=== PATIENT | male | born 1960 | race Caucasian/White ===

== ENCOUNTER 2018-07-24 12:57 | Outpatient (CLI) | payer OTHER ==
--- NOTE | 2018-07-24 15:29 | MRI ---
MRI LEFT KNEE WITHOUT CONTRAST: Date: 07/24/18 HISTORY: Internal derangement. N23.92. COMPARISON: Knee radiograph dated 04/02/17. FINDINGS: There is very little signal on the examination due to the extensive hardware artifact. Medial Meniscus: There is loss of volume in the medial meniscal body and posterior horn with chronic undersurface flap tear. Lateral Meniscus: Likely intact. PCL, LCL, and MCL: Intact. There is no normal distal ACL fiber appreciated with severe mucoid degenerative of the proximal ACL. Extensor Mechanism: Quadriceps tendon, patella, and patellar tendon are all intact. Cartilage: Patellofemoral compartment: High grade cartilage fissuring and delamination of the patellar apex, me dial patellar facet, and medial trochlea. Medial compartment: High grade chondral loss of the posterior weightbearing surface of medial femora l condyle, greater than 75%. Lateral compartment: Intact. Bones: Claw plate of the medial tibial plateau is present. Soft Tissues: Large joint effusion. Mild synovitis. IMPRESSION: 1. Loss of volume of the medial meniscal body and posterior horn with chronic undersurface flap tear . 2. 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 3. Focal Grade III chondromalacia posterior weightbearing zone of the medial femoral condyle. 4. Moderate joint effusion and synovitis. POS: [facility]
== END 2018-07-24 12:58 | disposition home or self-care (01) ==
LOC: SCSMRI 12:57
PROVIDERS: ATTEND Orthopaedic Surgery
DX: M23.92 Unspecified internal derangement of left knee (principal); S83.207D Unspecified tear of unspecified meniscus, current injury, left knee, subsequent encounter; M22.42 Chondromalacia patellae, left knee; M25.462 Effusion, left knee; M65.862 Other synovitis and tenosynovitis, left lower leg

== ENCOUNTER 2018-08-12 08:30 | Inpatient (IN) | payer OTHER ==
[2018-08-18] MEDS ORDERED: CEFAZOLIN/Water 2 GM/20 ML SYRINGE ONE (06:00)
[2018-08-18] MEDS ORDERED: Bupivacaine PF 0.5% 30 ML VIAL ONE (06:21)
[2018-08-18] MEDS ORDERED: Fentanyl 100 MCG/2 ML VIAL ONE (06:27)
[2018-08-18] MEDS ORDERED: Lidocaine 1% (PF) 30 ML VIAL ONE (06:27)
[2018-08-18] MEDS ORDERED: Midazolam HCl 2 mg/2 ml Vial ONE (06:27)
[2018-08-18] MEDS ORDERED: Clindamycin/D5W 600 mg/50 ml Premix Bag ONE (07:05)
[2018-08-18] MEDS ORDERED: Ondansetron HCl/PF 4 MG/2 ML Vial IVP PRN ×3 (07:27→10:22)
[2018-08-18] MEDS ORDERED: traMADol HCl 50 MG TAB PO PRN ×3 (07:27→10:22)
[2018-08-18] MEDS ORDERED: HYDROcodone/Acetaminophen 10/325 mg Tablet PO PRN ×2 (07:27)
[2018-08-18] MEDS ORDERED: Ropivacaine HCl/PF 250 ML in Premix Bag 1 BAG NERVE BLCK SCH (07:27)
[2018-08-18] MEDS ORDERED: Fentanyl 100 MCG/2 ML VIAL IV PRN (07:27)
[2018-08-18] MEDS ORDERED: Promethazine HCl 25 MG/ML VIAL IM PRN ×3 (07:27→10:22)
[2018-08-18] MEDS ORDERED: Zolpidem Tartrate 5 MG TAB PO PRN ×2 (07:27→10:22)
[2018-08-18] MEDS ORDERED: HYDROmorphone 0.5 MG/0.5 ML SYRINGE ONE ×2 (07:42→07:53)
[2018-08-18] MEDS ORDERED: Promethazine HCl 25 MG/ML VIAL SLOW IVP PRN (09:09)
[2018-08-18] MEDS ORDERED: HYDROmorphone 2 MG/ML VIAL SLOW IVP PRN (09:09)
[2018-08-18] MEDS ORDERED: Acetaminophen 325 MG TAB PO PRN (10:22)
[2018-08-18] MEDS ORDERED: diphenhydrAMINE 25 MG CAP PO PRN (10:22)
[2018-08-18] MEDS ORDERED: Nortriptyline 10 MG CAP PO PRN (10:24)
[2018-08-18] MEDS ORDERED: Albuterol Sulfate 1.25 MG/3 ML NEB ONE (10:27)
[2018-08-18] MEDS ORDERED: Sodium Chloride For Inhalation 0.9% 3 ML NEB ONE (10:27)
[2018-08-18] MEDS ORDERED: Tranexamic Acid 1,000 MG in Sodium Chloride 0.9% 100 ML IVPB SCH (10:30)
[2018-08-18] MEDS ORDERED: TESTOSTERONE CYPIONATE 100 MG IM SCH (11:00)
--- NOTE | 2018-08-18 11:17 | OP ---
DATE OF PROCEDURE: 08/18/2018 PREOPERATIVE DIAGNOSIS: Retained hardware, left leg, with severe left knee tricompartmental osteoart hrosis. POSTOPERATIVE DIAGNOSIS: Retained hardware, left leg, with severe left knee tricompartmental osteoar throsis. PROCEDURES PERFORMED: 1. Left total knee replacement using [employer] pinless navigation. 2. Removal of hardware, left tibia. SURGEON: Audi Pinedo M.D. METER READING CLERK: Shahram Rush PA-C. BLOOD LOSS: 100 mL COMPLICATIONS: None. ANESTHESIA: He had general anesthetic. He had a preoperative block. IMPLANTS: Triathlon total knee system, the femur was a size 8 cruciate retaining, the tibial basepla te was a size 8, primary tibial baseplate. We used an 8 x 9 mm CS X3 tibial bearing and 35 x 10 asym metric X3 patella. DISPOSITION: He went to the recovery room in stable condition. INDICATIONS: A 57-year-old male who had a high tibial opening wedge osteotomy done years ago and at this time he is presenting for knee replacement. OPERATIVE PROCEDURE: After all appropriate consent forms were explained and signed, she was taken ba ck to the operating room and was given general anesthetic. Once the level of anesthesia was appropri ate, a well-padded tourniquet was placed on the left leg and the leg was then prepped and draped in s tandard surgical fashion. The limb was exsanguinated and tourniquet taken up to 300 mmHg. Midline inc ision was made with a 10 blade down through the skin and subcutaneous tissue. Bovie electrocautery wa s used to coagulate any brisk venous bleeding. A new blade was used to make a medial parapatellar art hrotomy. Small subperiosteal release was performed medially and excess fat pad was removed. The knee was flexed up to gain access to the femur. The femur was navigated and distal femoral resection was m romeo. Epicondylar access was used to align our sizing jig and this was pinned in place. We sized our f emur to be a size 8 cruciate retaining. 4:1 cutting block was applied and pinned. Anterior and poste rior chamfer cuts were then made. We navigated out our proximal tibia and made our proximal tibial re section. Spreaders were used to remove any posterior osteophytes off the back of the femur as well as remaining meniscal tissue. A long alignment arcadio was then used to achieve correct rotation of our tib ial baseplate and a size 8 was chosen. This was pinned in place. We trialed the polyethylene and a 8 x 9 mm CS X3 tibial bearing polyethylene gave us full extension and good stability throughout range o f motion. Two towel clips and a saw were used to cut our patella. Three lug nuts were drilled and 35 x 10 asymmetric X3 patella was trialed which sat nicely in the trochlear groove. We then drilled our femur and punched our tibia. All components were removed. The knee was thoroughly irrigated and dried . Cement was mixed into the cement gun on the back table. Components were then placed. The knee was h eld out in full extension until the cement had dried. All excess bone cement was removed. Multiple # 2 Vicryl stitches as well as a Quill was used to close our extensor mechanism. 0 Quill followed by a running Monoderm was then used to close the skin. Surgicel glue was then used on the skin. Once this had dried, soft tissue dressing was applied to the limb, tourniquet was let down, and the toes pinked up nicely. The patient was then awakened and taken to the Recovery Room in stable condition. All co unts were correct at the end of the case. The patient did receive preoperative IV antibiotics. The p atient was injected with Exparel for postoperative pain relief. # This patient's high tibial osteotomy plate did cause great difficulty throughout the procedure. In itially, we tried to remove the top line of screws and we were fortunate to get 2 of the screws out, but one of them cold welded. I broke 2 screwdrivers trying to take this out. Therefore, we tried to perform the procedure seeing if we could sneak. The fin of the tibial baseplate around inside the t ibia without heading the screw. Unfortunately, this proved to be impossible. Therefore, in the midd le of the procedure, we had to take out a high speed bur with a metal cutting tip and we had to cut t hrough the top of the plate and through a locking ring and had to open this up, so that we were able to gain access to the screw itself. The entire plate was removed and all the screws. At this time, we were then able to remove the screw. Once this was done, we went about finishing our total knee. Again, this did put us a long tourniquet time and we let the tourniquet down and around 2 hours 10 mi nutes, so that we were able to implant the knee, allowed the cement to harden and closed the first la ju[place] of tissue. Once that was done, the tourniquet was let down. Toes pinked up nicely. We then did finish closing with the superficial layers of Stratafix and then finally closed the skin with interr upted Prolene sutures. Bulky sterile dressing was applied.
[2018-08-18] MEDS ORDERED: Bupivacaine 0.25% HCL 30 ML VIAL ONE (12:24)
[2018-08-18] MEDS ORDERED: Ropivacaine 0.5% HCl/PF (150 MG/30 ML VIAL) ONE (12:24)
[2018-08-18] MEDS ORDERED: ePHEDrine/0.9% NaCl/PF SYRINGE 50 mg/10 ml ONE (12:30)
[2018-08-18] MEDS ORDERED: PROPOFOL 200 MG/20 ML VIAL ONE (12:30)
[2018-08-18] MEDS ORDERED: Ondansetron HCl/PF 4 MG/2 ML Vial ONE (12:30)
[2018-08-18] MEDS ORDERED: Lidocaine 1% PF 5 ML VIAL ONE (12:30)
[2018-08-18] MEDS ORDERED: Dexamethasone 20 MG/5 ML VIAL ONE (12:30)
[2018-08-18] MEDS ORDERED: Ketorolac Tromethamine 30 MG/ML VIAL ONE (12:30)
[2018-08-18 12:44] VITALS: BMI 38.8
[2018-08-18] MEDS: Ketorolac Tromethamine 30 MG/ML VIAL IVP SCH ×2 (13:45→17:44)
[2018-08-18] MEDS: Sodium Chloride 0.9% 1,000 ML IV SCH ×2 (13:45→17:50)
--- NOTE | 2018-08-18 14:33 | CON ---
DATE OF CONSULTATION: 08/18/2018 PRIMARY CARE PHYSICIAN: Dr. Alejandro Reid. PRIMARY ATTENDING: Dr. Audi Pinedo. REASON FOR ADMISSION: Elective admission for left total knee replacement, hardware removal. REASON FOR CONSULT: Medical comanagement. HISTORY OF PRESENT ILLNESS: A 57-year-old male who has underlying history of hypertension, who had r ight total knee replacement done in 2016. At this time, the patient is admitted by Dr. Pinedo for left total knee replacement, hardware removal. The patient underwent surgery earlier today without any c omplications. Postoperatively, at [facility], we were consulted for medical comanagement. The patient does have history of osteoarthritis, which he thinks got from his work related overuse. Currently, he denies any chest pain, palpitation. He has nerve block in place and that is why his pa in over surgical site is controlled. He denies any constipation, diarrhea. He does report right asad ulder pain on and off basis. REVIEW OF SYSTEMS: The following complete review of systems was negative, unless otherwise mentioned in the HPI or below: Constitutional: Weight loss or gain, ability to conduct usual activities. Skin: Rash, itching. Eyes: Double vision, pain. ENT/Mouth: Nose bleeding, neck stiffness, pain, tenderness. Cardiovascular: Palpitations, dyspnea on exertion, orthopnea. Respiratory: Shortness of breath, wheezing, cough, hemoptysis, fever or night sweats. Gastrointestinal: Poor appetite, abdominal pain, heartburn, nausea, vomiting, constipation, or diarr hea. Genitourinary: Urgency, frequency, dysuria, nocturia. Musculoskeletal: Pain, swelling. Neurologic/Psychiatric: Anxiety, depression. Allergy/Immunologic: Skin rash, bleeding tendency. Please see my HPI for pertinent positive and negative. All other review of system reviewed and negat socorro except as mentioned in the HPI. PAST MEDICAL HISTORY: History of hypertension, dyslipidemia, obesity with BMI 38, osteoarthritis. PAST SURGICAL HISTORY: Cardiac catheterization with angioplasty in the past, right total knee replac ement. The patient had several left knee surgery and patient is status post hardware removal from le ft knee. PAST PSYCHIATRIC HISTORY: Reviewed and negative. FAMILY HISTORY: Father had unknown cancer, no strong family history of coronary artery disease or [place]. SOCIAL HISTORY: The patient is smoking about 1 pack per day. He denies any alcohol abuse. He denie s any other illicit drug abuse. ALLERGIES: KEFLEX and WELLBUTRIN. HOSPITAL COURSE: Reviewed. CURRENT HOME MEDICATIONS: Aspirin 325 mg p.o. daily, pravastatin 20 mg p.o. daily, testosterone 100 mg IM every 2 weeks, Nortriptyline 10 mg p.o. at bedtime, [place] 10 one tablet q.4 hourly p.r.n., hydr ochlorothiazide 25 mg p.o. daily. PHYSICAL EXAMINATION: VITAL SIGNS: Temperature 97.8, pulse 59, respiratory rate 18, saturation 95% on room air, blood pres sure 162/87, weight 311 pounds. GENERAL: Patient is currently alert, awake, no obvious acute distress. HEENT: Head: Normocephalic, atraumatic. Eyes: Pupils round, reactive to light. Extraocular muscl e intact. ENT: Oropharynx within normal limits. Moist mucous membranes. No oral lesion, no pharyn geal erythema, no exudate. NECK: Supple, no JVD, no thyromegaly, no carotid bruit, no jugular venous distention. LUNGS: Clear to auscultation without any rhonchi or rales. CARDIAC: S1, S2 regular without any significant murmur. ABDOMEN: Obesity present. Nontender, nondistended. No organomegaly, no mass, no suprapubic tendern ess. BACK: Unremarkable. No CVA tenderness. EXTREMITIES: Upper extremity, passive movement of all joints are normal. Lower extremity, left knee is covered with a dressing. He has a nerve block in place. Right lower extremity within normal jackson it. NEUROLOGIC: Nonfocal examination. Speech normal. Patient is able to move all four limbs. PSYCHIATRIC: Normal affect. HEMATOLOGIC: No lymphadenopathy. SIGNIFICANT LABORATORY DATA: CBC: WBC 7.2, hemoglobin 14.7, platelet 213. INR 1.0. BMP shows sodi um 141, potassium 4.1, chloride 108, BUN 19, creatinine 1.22, calcium 9.1. Urinalysis normal. ASSESSMENT AND PLAN: 1. Tobacco abuse disorder. Smoking cessation counseling given. We will offer nicotine patch to use on a p.r.n. basis while in hospital. 2. Osteoarthritis. This patient required right total knee replacement in the past and he had severa l surgeries on left knee and he had hardware removed from left knee. We will defer management to [facility] team. Patient will need PT, OT while in hospital. Patient will need aspirin for deep venous th rombosis prophylaxis, ferrous gluconate 324 mg p.o. b.i.d. Patient has nerve block, which will defer to anesthesia. Pain control with oral pain medication. 3. Dyslipidemia. Continue pravastatin 20 mg p.o. at bedtime. 4. Obesity with BMI 38. Dietary education given, weight loss education given. Healthy lifestyle me asures discussed with the patient. 5. Deep venous thrombosis prophylaxis per protocol. The patient is on aspirin therapy. 6. Gastrointestinal prophylaxis. Pepcid 20 mg p.o. b.i.d. 7. CODE STATUS: The patient is FULL CODE. The patient's is surrogate decision maker. Disposition plan based on clinical course. Thank you for the consult. We will follow up with you while in hospital.
[2018-08-18] MEDS ORDERED: Milk Of Magnesia 30 ML UDCUP PO PRN (14:36)
[2018-08-18] MEDS ORDERED: cloNIDine 0.1 MG TAB PO PRN (14:36)
[2018-08-18] MEDS ORDERED: Artificial Tears 18 DROP/0.9 ML EA EYE PRN (14:36)
[2018-08-18] MEDS ORDERED: Senokot 8.6 MG TAB PO PRN (14:36)
[2018-08-18] MEDS ORDERED: Diabetic Tussin 200 MG/10 ML UDCUP PO PRN (14:36)
[2018-08-18] MEDS ORDERED: Calcium Carbonate 500 MG ChewTAB PO PRN (14:36)
[2018-08-18] MEDS ORDERED: Mag-Al 1200 mg/1200 mg/30 ML UDCUP PO PRN (14:36)
[2018-08-18] MEDS ORDERED: Loperamide HCl 2 MG CAP PO PRN (14:36)
[2018-08-18] MEDS ORDERED: Sodium Chloride 0.65% Nasal 44 ML BOT EA NARE PRN (14:36)
[2018-08-18] MEDS ORDERED: Eucerin (Mineral Oil/Petrolatum,White) 30 gm Jar TOP PRN (14:36)
[2018-08-18] MEDS ORDERED: hydrALAZINE 20 MG/ML VIAL SLOW IVP PRN (14:36)
[2018-08-18] MEDS ORDERED: Chloraseptic Spray 180 ml Bottle PO PRN (14:36)
[2018-08-18] MEDS: Clindamycin/D5W 900 MG in Premix Bag 1 BAG IVPB SCH ×2 (14:50→22:00)
[2018-08-18] MEDS: Famotidine 20 MG TAB PO SCH (21:55)
[2018-08-18] MEDS: Aspirin 81 mg Enteric Coated Tablet PO SCH (21:56)
[2018-08-18] MEDS ORDERED: Clindamycin/D5W 900 MG in Premix Bag 1 BAG IVPB SCH (22:00)
[2018-08-19] MEDS: Ketorolac Tromethamine 30 MG/ML VIAL IVP SCH ×3 (01:00→12:24)
[2018-08-19 05:39] LABS: Hemoglobin 11.1 g/dL (14.0-18.0); Mean Corpuscular HGB CONC 32.8 g/dL (32.0-36.0); Mean Corpuscular Hemoglobin 30.1 pg (27.0-31.0); Mean Corpuscular Volume 91.8 fL (78.0-98.0); Mean Platelet Volume 8.3 fL (7.4-10.4); Platelet Count 198 thou/uL (130-400); RBC Distribution Width 12.8 % (11.5-14.5); Red Blood Cell (RBC) Count 3.68 mill/uL (4.70-6.10); White Blood Cell (WBC) Count 11.9 thou/uL (4.8-10.8)
[2018-08-19] MEDS: Sodium Chloride 0.9% 1,000 ML IV SCH (05:52)
[2018-08-19] MEDS ORDERED: Pravastatin Sodium 20 MG TAB PO SCH (09:00)
[2018-08-19] MEDS ORDERED: Senokot S 8.6-50 MG TAB PO SCH (09:00)
[2018-08-19] MEDS ORDERED: Ferrous Gluconate 324 MG TAB PO SCH (09:00)
[2018-08-19] MEDS ORDERED: Multivitamin W/ Minerals 1 TAB PO SCH (09:00)
[2018-08-19] MEDS: Aspirin 81 mg Enteric Coated Tablet PO SCH (09:04)
[2018-08-19] MEDS: Famotidine 20 MG TAB PO SCH (09:05)
--- NOTE | 2018-08-19 09:43 | PDOC.PN ---
- Subjective Encounter Start Date: 08/19/18 Encounter Start Time: 09:00 -: old records requested/rev Patient seen and examined. No new complaints. No overnight events - Objective Resuscitation Status: Resuscitation Status FULL:Full Resuscitation MAR Reviewed: Yes Vital Signs & Weight: Vital Signs (12 hours) Temp Pulse Resp BP Pulse Ox 08/19/18 08:15 98.2 F 67 18 131/74 96 08/19/18 04:00 98.4 F 65 16 124/71 96 08/19/18 00:00 98.7 F 66 16 155/83 H 94 L Weight Weight 311 lb I&O: 08/18/18 08/19/18 08/20/18 06:59 06:59 06:59 Intake Total 2282 Balance 2282 Result Diagrams: 08/19/18 04:53 Phys Exam - Physical Examination Constitutional: NAD HEENT: PERRLA, moist MMs, sclera anicteric Neck: no JVD, supple Respiratory: no wheezing, no rales, no rhonchi Cardiovascular: RRR, no significant murmur, no rub Gastrointestinal: soft, non-tender, no distention, positive bowel sounds Musculoskeletal: no edema, pulses present left knee with dressing, nerve block+ Neurological: non-focal, normal sensation, moves all 4 limbs Psychiatric: normal affect, A&O x 3 Skin: no rash, normal turgor Dx/Plan (1) S/P hardware removal Code(s): Z98.890 - OTHER SPECIFIED POSTPROCEDURAL STATES Status: Acute Comment: left knee (2) Anemia, normocytic normochromic Code(s): D64.9 - ANEMIA, UNSPECIFIED Status: Chronic (3) Dyslipidemia Code(s): E78.5 - HYPERLIPIDEMIA, UNSPECIFIED Status: Chronic (4) Hypertension Code(s): I10 - ESSENTIAL (PRIMARY) HYPERTENSION Status: Chronic (5) Obesity (BMI 30-39.9) Code(s): E66.9 - OBESITY, UNSPECIFIED Status: Chronic (6) Osteoarthritis Code(s): M19.90 - UNSPECIFIED OSTEOARTHRITIS, UNSPECIFIED SITE Status: Chronic - Plan cont current plan of care, plan discussed w/ family, PT/OT * continue aspirin for DVT prophylaxis * continue pepcid for GI prophylaxis * PT as per [facility] protocol * pain controlled with current pain meds * nerve block as per anesthesia * discussed with * medication reviewed as below * symptomatic treatment * home medication as ordered. Review of Systems - Review of Systems ENT: negative: Ear Pain, Ear Discharge, Nose Pain, Nose Discharge, Nose Congestion, Mouth Pain, Mouth Swelling, Throat Pain, Throat Swelling, Other Respiratory: negative: Cough, Dry, Shortness of Breath, Hemoptysis, SOB with Excertion, Pleuritic Pain, Sputum, Wheezing Cardiovascular: negative: chest pain, palpitations, orthopnea, paroxysmal nocturnal dyspnea, edema, light headedness, other Gastrointestinal: negative: Nausea, Vomiting, Abdominal Pain, Diarrhea, Constipation, Melena, Hematochezia, Other Genitourinary: negative: Dysuria, Frequency, Incontinence, Hematuria, Retention , Other Musculoskeletal: negative: Neck Pain, Shoulder Pain, Arm Pain, Back Pain, Hand Pain, Leg Pain, Foot Pain, Other Skin: negative: Rash, Lesions, Huy, Bruising, Other - Medications/Allergies Allergies/Adverse Reactions: Allergies Allergy/AdvReac Type Severity Reaction Status Date / Time bupropion HCl Allergy Severe CHEST Verified 04/10/16 12:48 [From Wellbutrin] TIGHTNESS cephalexin monohydrate Allergy Intermediate Hives Verified 04/10/16 12:48 [From Keflex] Medications: Current Medications Acetaminophen (Tylenol) 650 mg PO Q4H PRN PRN Reason: MALHOTRA/ T > 101F; Mild Pain (1-3) Hydrocodone Bitart/Acetaminophen ([place] 10/325) 1 tab PO Q4H PRN PRN Reason: Pain (1-3) Hydrocodone Bitart/Acetaminophen ([place] 10/325) 2 tab PO Q4H PRN PRN Reason: PAIN (4-6) Al Hydroxide/Mg Hydroxide (Maalox) 15 ml PO Q4H PRN PRN Reason: Heartburn or Indigestion Artificial Tears (Tears Naturale) 0 drop EA EYE PRN PRN PRN Reason: Dry Eyes Aspirin (Ecotrin) 81 mg PO BID [facility] Last Admin: 08/19/18 09:04 Dose: 81 mg Calcium Carbonate (Tums) 1,000 mg PO Q4H PRN PRN Reason: Heartburn or Indigestion Clonidine (Catapres) 0.1 mg PO Q4H PRN PRN Reason: Systolic BP > 180 Diphenhydramine HCl (Benadryl) 25 mg PO Q6H PRN PRN Reason: Itching Famotidine (Pepcid) 20 mg PO BID [facility] Last Admin: 08/19/18 09:05 Dose: 20 mg Fentanyl (Sublimaze) 50 mcg IV Q1H PRN PRN Reason: BREAKTHRU PAIN Ferrous Gluconate (Fergon) 324 mg PO BID [facility] Last Admin: 08/19/18 09:05 Dose: 324 mg Guaifenesin (Robitussin Sf) 200 mg PO Q4H PRN PRN Reason: Cough Hydralazine HCl (Apresoline) 10 mg SLOW IVP Q4H PRN PRN Reason: Systolic BP > 180 Ropivacaine 250 ml/ Device 250 mls @ 10 mls/hr NERVE BLCK INF [facility] Sodium Chloride (Normal Saline 0.9%) 1,000 mls @ 100 mls/hr IV .Q10H [facility] Last Admin: 08/19/18 05:52 Dose: Not Given Iron/Minerals/Multivitamins (Theragran M) 1 tab PO DAILY [facility] Last Admin: 08/19/18 09:06 Dose: 1 tab Ketorolac Tromethamine (Toradol) 30 mg IVP Q6HR [facility] Stop: 08/20/18 06:01 Last Admin: 08/19/18 05:51 Dose: 30 mg Loperamide HCl (Imodium) 2 mg PO PRN PRN PRN Reason: Diarrhea/Loose Stools Magnesium Hydroxide (Milk Of Magnesium) 30 ml PO DAILYPRN PRN PRN Reason: Constipation Mineral Oil/White Petrolatum (Eucerin Cream) 0 gm TOP BIDPRN PRN PRN Reason: Dry Skin Nortriptyline HCl (Pamelor) 10 mg PO HS PRN PRN Reason: Insomnia Ondansetron HCl (Zofran) 4 mg IVP Q6H PRN PRN Reason: Nausea/Vomiting Ondansetron HCl (Zofran) 4 mg IVP Q6H PRN PRN Reason: Nausea/Vomiting Phenol (Chloraseptic [place] 180 Ml Bot) 0 ml PO PRN PRN PRN Reason: Sore Throat Pravastatin Sodium (Pravachol) 20 mg PO DAILY [facility] Last Admin: 08/19/18 09:06 Dose: 20 mg Promethazine HCl (Phenergan) 12.5 mg IM Q4H PRN PRN Reason: Nausea Promethazine HCl (Phenergan) 12.5 mg IM Q4H PRN PRN Reason: Nausea/Vomiting Senna (Senokot) 2 tab PO HSPRN PRN PRN Reason: Constipation Senna/Docusate Sodium (Senokot S) 2 tab PO BID [facility] Last Admin: 08/19/18 09:06 Dose: 2 tab Sodium Chloride (Flush - Normal Saline) 10 ml IVF PRN PRN PRN Reason: Saline Flush Sodium Chloride ([place] Nasal [place] 0.65%) 0 ml EA NARE QIDPRN PRN PRN Reason: Nasal Congestion Tramadol HCl (Ultram) 50 mg PO Q6H PRN PRN Reason: Mild Pain (1-3) Tramadol HCl (Ultram) 100 mg PO Q6H PRN PRN Reason: Moderate Pain 4-6 Tramadol HCl (Ultram) 100 mg PO Q6H PRN PRN Reason: Mild Pain (1-3) Zolpidem Tartrate (Ambien) 5 mg PO HSPRN PRN PRN Reason: Insomnia Zolpidem Tartrate (Ambien) 5 mg PO HSPRN PRN PRN Reason: Insomnia
[2018-08-19] MEDS ORDERED: Ropivacaine 0.2% 550 ML 550 ML NERVE BLCK SCH (13:00)
--- NOTE | 2018-08-19 15:32 | PRG ---
DATE OF SERVICE: 08/19/2018 Please see my consultation note for more detail. This patient was admitted electively by Dr. Shahida sanchez hardware removal from left knee. Postoperatively at [facility] Team was consulted for medical comanagement. Please see my consult note for more detail. The patient had aspirin for DVT prophylaxis and nerve block as per Anesthesia. Patient's pain was controlled with pain medication. We continued all his home medication which she will continue upon discharge. The patient is given No rco for pain, prescription by primary team. The patient is seen and examined at bedside today. Please see my progress note from today for furthe r detail. Today, primary team is discharging and we will sign off.
[2018-08-19 16:04] VITALS: BP 147/73; TEMP 98.3
== END 2018-08-19 15:30 | disposition home or self-care (01) | DRG 909 ==
LOC: SJJU 08-18 05:36
PROVIDERS: ADMIT Orthopaedic Surgery; ATTEND Orthopaedic Surgery
PROC: 0SRD0J9 Replacement of Left Knee Joint with Synthetic Substitute, Cemented, Open Approach (ICD-10-PCS; principal; 2018-08-18)
DX: T85.848A Pain due to other internal prosthetic devices, implants and grafts, initial encounter (principal); I10 Essential (primary) hypertension; E78.5 Hyperlipidemia, unspecified; E66.9 Obesity, unspecified; Z68.38 Body mass index [BMI] 38.0-38.9, adult; M17.12 Unilateral primary osteoarthritis, left knee
CPT/HCPCS: 36415; 85027; 86850; 86900; 86901; A4306; C1713; C1776; G8978-GP-CK; G8979-GP-CI; J1170; J1885; J2001; J2250; J2795; J3010; J3370; J3490; J7050; S0020

== ENCOUNTER 2018-08-12 08:34 | Outpatient (CLI) | payer OTHER ==
[2018-08-12 10:03] LABS: Hemoglobin 14.7 g/dL (14.0-18.0); Mean Corpuscular HGB CONC 33.7 g/dL (32.0-36.0); Mean Corpuscular Hemoglobin 30.5 pg (27.0-31.0); Mean Corpuscular Volume 90.5 fL (78.0-98.0); Mean Platelet Volume 7.7 fL (7.4-10.4); Platelet Count 213 thou/uL (130-400); RBC Distribution Width 12.5 % (11.5-14.5); Red Blood Cell (RBC) Count 4.84 mill/uL (4.70-6.10); White Blood Cell (WBC) Count 7.2 thou/uL (4.8-10.8)
[2018-08-12 10:15] LABS: Anion Gap 12 mmol/L (10-20); BUN (Urea Nitrogen) 19 mg/dL (8.4-25.7); Calc. Creatinine Clearance 0 mL/min (70-130); Calcium 9.1 mg/dL (7.8-10.44); Carbon Dioxide 25 mmol/L (22-29); Chloride 108 mmol/L (98-107); Estimated GFR-MDRD 61; Glucose 109 mg/dL (70-105); Potassium 4.1 mmol/L (3.5-5.1); Sodium 141 mmol/L (136-145)
[2018-08-12 10:36] LABS: Bilirubin Negative (Negative); Blood, Urine Negative (Negative); Clarity CLEAR (Clear); Glucose, Urine (Dipstick) Negative (Negative); Leukocyte Negative (Negative); Nitrite Negative (Negative); Protein, Urine (Dipstick) Negative (Neg-Trace); Specific Gravity, Urine 1.019 (1.002-1.036); Urobilinogen 0.2 mg/dL (0.2-1.0)
[2018-08-12 10:44] LABS: Bacteria/HPF None Seen HPF (None Seen); Hyaline Casts/LPF 0-3 HYALINE CAST LPF (0-3 Hyaline); RBC/HPF 0-3 HPF (0-3); Squamous Epithelial None Seen HPF (0-3); WBC/HPF None Seen HPF (0-3)
--- NOTE | 2018-08-17 14:35 | EKG ---
Test Reason : Blood Pressure : / mmHG Vent. Rate : 056 BPM Atrial Rate : 056 BPM P-R Int : 212 ms QRS Dur : 098 ms QT Int : 464 ms P-R-T Axes : -22 -23 071 degrees QTc Int : 447 ms Sinus bradycardia with 1st degree A-V block Voltage criteria for left ventricular hypertrophy Abnormal ECG When compared with ECG of 10-APR-2016 13:11, No significant change was found Confirmed by DELANEY MURPHY (2) on 08/17/2018 2:35:30 PM Referred By: GRISELDA Confirmed By:DELANEY MURPHY
== END 2018-08-12 08:35 | disposition home or self-care (01) ==
LOC: LABBT 08:34
PROVIDERS: ATTEND Orthopaedic Surgery
DX: Z01.818 Encounter for other preprocedural examination (principal); T84.84XA Pain due to internal orthopedic prosthetic devices, implants and grafts, initial encounter; Z96.652 Presence of left artificial knee joint
CPT/HCPCS: 80048; 81001; 85027; 85610; 87081; 93005; 93010

== ENCOUNTER 2021-06-06 09:47 | Outpatient (CLI) | payer BC ==
[2021-06-06 11:12] LABS: #Basophils 0.1 10x3/uL (0.0-0.2); #Eosinphils 0.2 10x3/uL (0.0-0.5); %Basophils 0.8 % (0.0-2.0); %Eosinophils 2.1 % (0.0-6.0); %Lymphocytes 21.5 % (18.0-47.0); %Monocytes 12.6 % (0.0-10.0); %Neutrophils 62.6 % (40.0-75.0); Hemoglobin 15.6 g/dL (13.5-17.5); Mean Corpuscular HGB CONC 32.7 g/dL (32.0-36.0); Mean Corpuscular Hemoglobin 29.7 pg (27.0-33.0); Mean Corpuscular Volume 90.7 fl (81.2-95.1); Platelet Count 218 10x3/uL (150-450); RBC Distribution Width 14.1 % (11.5-14.5); Red Blood Cell (RBC) Count 5.26 10x6/uL (4.32-5.72); White Blood Cell (WBC) Count 7.9 10x3/uL (3.5-10.5)
[2021-06-06 11:45] LABS: Anion Gap 13 mmol/L (10-20); BUN (Urea Nitrogen) 14 mg/dL (8.4-25.7); Calc. Creatinine Clearance 0 mL/min (70-130); Calcium 9.4 mg/dL (7.8-10.44); Carbon Dioxide 27 mmol/L (22-29); Chloride 104 mmol/L (98-107); Glucose 114 mg/dL (70-105); Potassium 4.1 mmol/L (3.5-5.1); Sodium 140 mmol/L (136-145)
[2021-06-07 15:39] LABS: SARS-CoV-2 PCR by NAA Not Detected (NotDetected)
== END 2021-06-06 09:48 | disposition home or self-care (01) ==
LOC: LABBT 09:47
PROVIDERS: ATTEND Orthopaedic Surgery
DX: Z01.818 Encounter for other preprocedural examination (principal); G56.01 Carpal tunnel syndrome, right upper limb; Z20.822 Contact with and (suspected) exposure to COVID-19
CPT/HCPCS: 71046; 80048; 85025; 93005; 93010; U0003; U0005

== ENCOUNTER 2022-09-26 10:18 | Outpatient (CLI) | payer OTHER | END 2022-09-26 10:19 | disposition home or self-care (01) | LOC: TBSIIMAG 10:18 | PROVIDERS: ATTEND Neurological Surgery | DX: M51.26 Other intervertebral disc displacement, lumbar region (principal); M51.36 Other intervertebral disc degeneration, lumbar region; M48.061 Spinal stenosis, lumbar region without neurogenic claudication; M48.07 Spinal stenosis, lumbosacral region | CPT/HCPCS: 72148 ==

== ENCOUNTER 2023-07-24 08:59 | Outpatient (CLI) | payer OTHER ==
[2023-07-24 09:56] LABS: #Basophils 0.1 10x3/uL (0.0-0.2); #Eosinphils 0.2 10x3/uL (0.0-0.5); #Monocytes 0.9 10x3/uL (0.0-1.1); #Neutrophils 4.9 10x3/uL (1.5-8.4); %Basophils 1.1 % (0.0-2.0); %Eosinophils 2.2 % (0.0-6.0); %Lymphocytes 19.3 % (18.0-47.0); %Monocytes 11.5 % (0.0-10.0); %Neutrophils 65.6 % (40.0-75.0); Hematocrit 47.4 % (38.8-50.0); Hemoglobin 16.2 g/dL (13.5-17.5); Mean Corpuscular HGB CONC 34.2 g/dL (32.0-36.0); Mean Corpuscular Hemoglobin 30.1 pg (27.0-33.0); Mean Corpuscular Volume 87.9 fl (81.2-95.1); Mean Platelet Volume 9.9 fl (7.4-10.4); Platelet Count 237 10x3/uL (150-450); RBC Distribution Width 13.9 % (11.5-14.5); Red Blood Cell (RBC) Count 5.39 10x6/uL (4.32-5.72); White Blood Cell (WBC) Count 7.4 10x3/uL (3.5-10.5)
[2023-07-24 10:14] LABS: Anion Gap 14 mmol/L (10-20); BUN (Urea Nitrogen) 18 mg/dL (8.4-25.7); Calc. Creatinine Clearance 0 mL/min (70-130); Calcium 9.2 mg/dL (7.8-10.44); Carbon Dioxide 20 mmol/L (23-31); Chloride 110 mmol/L (98-107); Estimated GFR 72; Glucose 139 mg/dL (80-115); Potassium 4.2 mmol/L (3.5-5.1); Sodium 140 mmol/L (136-145)
== END 2023-07-24 09:00 | disposition home or self-care (01) ==
LOC: LABBT 08:59
PROVIDERS: ATTEND Orthopaedic Surgery
DX: Z01.818 Encounter for other preprocedural examination (principal); G56.02 Carpal tunnel syndrome, left upper limb; M65.322 Trigger finger, left index finger
CPT/HCPCS: 80048; 85025; 93005; 93010

== ENCOUNTER 2023-07-26 09:21 | Day surgery (SDC) | payer OTHER ==
[2023-07-24 09:27] VITALS: BMI 35.1
[2023-07-26] MEDS ORDERED: Sodium Chloride 0.9% 0 ML ONE (12:16)
[2023-07-26] MEDS ORDERED: CEFAZOLIN 2 GM VIAL ONE (12:16)
[2023-07-26] MEDS ORDERED: Clindamycin/D5W 600 mg/50 ml Premix Bag ONE (12:17)
[2023-07-26] MEDS ORDERED: Fentanyl 250 MCG/5 ML VIAL ONE (12:18)
[2023-07-26] MEDS ORDERED: EPINEPHrine 1 MG/ML AMP ONE (12:30)
[2023-07-26] MEDS ORDERED: Lidocaine 1% (PF) 30 ML VIAL ONE (12:30)
[2023-07-26] MEDS ORDERED: Glycopyrrolate 0.2 MG/ML 5 ML SYRINGE ONE (12:47)
[2023-07-26] MEDS ORDERED: Ondansetron PF 4 MG/2 ML Vial ONE (12:47)
[2023-07-26] MEDS ORDERED: ePHEDrine Sulfate 50 MG/10 ML VIAL ONE (12:47)
[2023-07-26] MEDS ORDERED: PROPOFOL 200 MG/20 ML VIAL ONE (12:47)
[2023-07-26] MEDS ORDERED: Dexamethasone 20 MG/5 ML VIAL ONE (12:47)
[2023-07-26] MEDS ORDERED: Lidocaine 1% PF 5 ML VIAL ONE (12:47)
== END 2023-07-26 15:30 | disposition home or self-care (01) ==
LOC: SDC 09:21
PROVIDERS: ATTEND Orthopaedic Surgery
PROC: 01N50ZZ Release Median Nerve, Open Approach (ICD-10-PCS; principal; 2023-07-26)
PROC: 0LN80ZZ Release Left Hand Tendon, Open Approach (ICD-10-PCS; 2023-07-26)
DX: G56.03 Carpal tunnel syndrome, bilateral upper limbs (principal); M65.322 Trigger finger, left index finger; I10 Essential (primary) hypertension; Z98.890 Other specified postprocedural states; Z96.653 Presence of artificial knee joint, bilateral; Z88.1 Allergy status to other antibiotic agents; Z88.8 Allergy status to other drugs, medicaments and biological substances; Z79.899 Other long term (current) drug therapy
CPT/HCPCS: J0171; J1100; J2001; J2405; J2704; J3010; J3490

== ENCOUNTER 2024-01-16 07:55 | Outpatient (CLI) | payer OTHER | END 2024-01-16 07:56 | disposition home or self-care (01) | LOC: BICMRI 07:55 | PROVIDERS: ATTEND Orthopaedic Surgery Hand Surgery | DX: G56.12 Other lesions of median nerve, left upper limb (principal) ==

== ENCOUNTER 2024-11-13 07:45 | Outpatient (CLI) | payer BC ==
[2024-11-13 09:03] LABS: #Basophils 0.08 10x3/uL (0.0-0.2); %Basophils 0.9 % (0.0-1.0); %Eosinophils 2.7 % (0.0-10.0); %Lymphocytes 23.6 % (21.0-51.0); %Monocytes 9.4 % (0.0-10.0); %Neutrophils 63.1 % (42.0-75.0); Hematocrit 43.8 % (42.0-52.0); Hemoglobin 15.2 g/dL (14.0-18.0); Mean Corpuscular HGB CONC 34.7 g/dL (32.0-36.0); Mean Corpuscular Hemoglobin 30.2 pg (27.0-31.0); Mean Corpuscular Volume 87.1 fL (78.0-98.0); Mean Platelet Volume 9.6 fL (7.4-10.4); Platelet Count 239 10x3/uL (130-400); RBC Distribution Width 13.2 % (11.5-14.5); Red Blood Cell (RBC) Count 5.03 mill/uL (4.70-6.10)
[2024-11-13 09:15] LABS: Anion Gap 13 mmol/L (10-20); BUN (Urea Nitrogen) 20 mg/dL (8.4-25.7); Calc. Creatinine Clearance 0 mL/min (70-130); Calcium 8.8 mg/dL (7.8-10.44); Carbon Dioxide 22 mmol/L (23-31); Chloride 109 mmol/L (98-107); Estimated GFR 62; Glucose 146 mg/dL (80-115); Potassium 3.8 mmol/L (3.5-5.1); Sodium 140 mmol/L (136-145)
== END 2024-11-13 07:46 | disposition home or self-care (01) ==
LOC: LABBT 07:45
PROVIDERS: ATTEND Orthopaedic Surgery Hand Surgery
DX: Z01.818 Encounter for other preprocedural examination (principal); G56.12 Other lesions of median nerve, left upper limb; G56.02 Carpal tunnel syndrome, left upper limb
CPT/HCPCS: 80048; 85025

== ENCOUNTER 2024-11-20 05:56 | Day surgery (SDC) | payer BC ==
[2024-11-13 08:20] VITALS: BMI 36.6
[2024-11-20] MEDS ORDERED: Bacitracin Zinc Ointment 30 gm TUBE ONE (06:14)
[2024-11-20] MEDS ORDERED: Bupivacaine PF 0.5% 30 ML VIAL ONE (06:14)
[2024-11-20] MEDS ORDERED: Ondansetron PF 4 MG/2 ML Vial ONE (07:12)
[2024-11-20] MEDS ORDERED: Lidocaine 1% PF 5 ML VIAL ONE (07:12)
[2024-11-20] MEDS ORDERED: Ketorolac Tromethamine 30 MG (1 mL) VIAL ONE ×2 (07:12→09:05)
[2024-11-20] MEDS ORDERED: PROPOFOL 20 ML ONE ×2 (07:12→07:23)
[2024-11-20] MEDS ORDERED: Vancomycin (BATCH) 300 ML ONE (07:15)
[2024-11-20] MEDS ORDERED: PHENYLEPHRINE-NS 100 MCG/ML 10 ML SYRINGE ONE (08:29)
== END 2024-11-20 10:17 | disposition home or self-care (01) ==
LOC: SDC 05:56
PROVIDERS: ATTEND Orthopaedic Surgery Hand Surgery
PROC: 0LT80ZZ Resection of Left Hand Tendon, Open Approach (ICD-10-PCS; principal; 2024-11-20)
PROC: 0LN80ZZ Release Left Hand Tendon, Open Approach (ICD-10-PCS; principal; 2024-11-20)
PROC: 01S50ZZ Reposition Median Nerve, Open Approach (ICD-10-PCS; principal; 2024-11-20)
DX: G56.02 Carpal tunnel syndrome, left upper limb (principal); G56.12 Other lesions of median nerve, left upper limb; I10 Essential (primary) hypertension; N40.0 Benign prostatic hyperplasia without lower urinary tract symptoms; F17.200 Nicotine dependence, unspecified, uncomplicated; Z98.52 Vasectomy status; Z96.653 Presence of artificial knee joint, bilateral; Z98.49 Cataract extraction status, unspecified eye; Z98.890 Other specified postprocedural states; Z88.8 Allergy status to other drugs, medicaments and biological substances; Z88.1 Allergy status to other antibiotic agents; Z79.82 Long term (current) use of aspirin; Z79.01 Long term (current) use of anticoagulants; Z79.899 Other long term (current) drug therapy
CPT/HCPCS: J0665; J1885; J2405; J2704; J3370